=== PATIENT | male | born 1970 | race Caucasian/White ===

== ENCOUNTER 2021-02-11 15:17 | Outpatient (REF) | payer MEDICAID, SELFPAY ==
[2021-02-13 11:48] LABS: COVID-19 RT-PCR UVMMC Result Negative (Negative)
== END 2021-02-11 15:18 | disposition home or self-care (01) ==
LOC: LBN 15:17
PROVIDERS: Visit Provider Physician Assistant Medical
DX: Z20.822 Contact with and (suspected) exposure to COVID-19 (principal); J06.9 Acute upper respiratory infection, unspecified
CPT/HCPCS: U0003

== ENCOUNTER 2021-03-04 14:18 | Outpatient (REF) | payer MEDICAID, SELFPAY ==
[2021-03-04 17:30] LABS: Vitamin B12 432 pg/mL (193-986)
== END 2021-03-04 14:19 | disposition home or self-care (01) ==
LOC: NCHCN 14:18
PROVIDERS: Visit Provider Nurse Practitioner
DX: R20.2 Paresthesia of skin (principal)
CPT/HCPCS: 82607